=== PATIENT | female | born 1965 | race Caucasian/White ===

== ENCOUNTER → 2018-02-26 | Day surgery (SDC) | payer OTHER ==
[~2018-02-26] MED LIST: BIOTIN2500 MCG PO; CITALOPRAM HBR20 MG PO; FENTANYL CITRATE/PF 100MCG/2 ML INJ ONE; FERROUS SULFAT325 M1 PO; FISH OIL 1,2001 EACH PO; MELOXICAM7.5 MG PO; MIDAZOLAM HCL 2 MG/2 ML VIAL ONE; MIRAPEX1 MG PO; NAPROXEN250 MG PO; POTASSIUM CITR10 MEQ PO; PROBIOTIC & AC1 EACH PO; PROPOFOL IV EMULSION 10 MG/ML 50 ML VIAL ONE; URSODIOL300 MG PO; VITAMIN D250000 UNIT PO; Z.0.GLIMEPIRIDE1 MG PO; Z.0.METOPROLOL TART5 PO; Z.0.PANTOPRAZOLE SO4 PO; Z.0.SERTRALINE HCL50 PO; ZYRTEC10 M3 PO; [UNRECOGNIZED DRUG - OTHER] PO
[2018-02-26 09:54] VITALS: BP 130/73
--- NOTE | 2018-02-26 10:36 | Operative Report ---
DATE OF PROCEDURE: February 26, 2018 PROCEDURES 1. Esophagogastroduodenoscopy. 2. Colonoscopy. The patient with a history of anemia, history of adenomatous colon polyps here for an EGD and colonoscopy. REFERRING PHYSICIAN: Dr. Vazquez PROCEDURE: After informed written consent and premedication with monitored anesthesia care, the standard video Olympus gastroscope was introduced into the mouth, esophagus, stomach, and into the jejunum. The patient had a gastric bypass. The gastrojejunal anastomosis appeared to be normal. She did have a significant gastric remnant, which showed some gastritis and biopsies were done. The esophagus appeared to be normal. PROCEDURE: Colonoscopy. The standard adult video Olympus colonoscope was introduced into the rectum and all the way into the cecum. The cecum, ascending colon, transverse, descending, sigmoid, and rectum all appeared to be normal. IMPRESSION 1. Normal colonoscopy. 2. Gastritis. 3. Gastric bypass. RECOMMENDATIONS: Check results of the biopsies. Repeat colonoscopy in 3 years. Iron supplementation per PCP. Job#: [id number]
== END | disposition home or self-care (01) ==
LOC: OR 06:28
PROVIDERS: ATTEND Internal Medicine Gastroenterology
DX: Z12.11 Encounter for screening for malignant neoplasm of colon (principal); Z86.010 Personal history of colon polyps; K29.70 Gastritis, unspecified, without bleeding; Z98.84 Bariatric surgery status; D50.9 Iron deficiency anemia, unspecified; Z71.3 Dietary counseling and surveillance; E66.01 Morbid (severe) obesity due to excess calories; G47.33 Obstructive sleep apnea (adult) (pediatric); E11.9 Type 2 diabetes mellitus without complications; I10 Essential (primary) hypertension; K21.9 Gastro-esophageal reflux disease without esophagitis; N20.0 Calculus of kidney; F32.9 Major depressive disorder, single episode, unspecified; Z88.1 Allergy status to other antibiotic agents; Z91.048 Other nonmedicinal substance allergy status; Z01.810 Encounter for preprocedural cardiovascular examination; Z68.42 Body mass index [BMI] 45.0-49.9, adult; Z79.84 Long term (current) use of oral hypoglycemic drugs; Z85.828 Personal history of other malignant neoplasm of skin; Z87.440 Personal history of urinary (tract) infections; Z83.79 Family history of other diseases of the digestive system
CPT/HCPCS: 36415; 43239; 45378; 82948; 93005; J2250

== ENCOUNTER → 2021-11-29 | Day surgery (SDC) | payer OTHER ==
[~2021-11-29] MED LIST changes: +ABILIFY2 MG PO; +CELEXA20 MG PO; +COLON HEALTH PO; +DESYREL PO; -FENTANYL CITRATE/PF 100MCG/2 ML INJ ONE; +IRON PO; +LIDOCAINE HCL 2% LOCAL INJ 5 ML SDV VIAL INJ ONE; +METFORMIN PO; -MIDAZOLAM HCL 2 MG/2 ML VIAL ONE; +PROPOFOL IV EMULSION 10 MG/ML 20 ML VIAL ONE; -PROPOFOL IV EMULSION 10 MG/ML 50 ML VIAL ONE; +TERBINAFINE HC250 MG PO; +VIT B12 PO; +XIFAXAN550 MG PO
[2021-11-29 08:32] VITALS: BP 119/76
== END | disposition home or self-care (01) ==
LOC: OR 06:58
PROVIDERS: ATTEND Internal Medicine Gastroenterology
DX: R15.9 Full incontinence of feces (principal); K63.5 Polyp of colon; K58.9 Irritable bowel syndrome, unspecified; K59.00 Constipation, unspecified; Z71.3 Dietary counseling and surveillance; G47.33 Obstructive sleep apnea (adult) (pediatric); K76.0 Fatty (change of) liver, not elsewhere classified; Z78.9 Other specified health status; E11.9 Type 2 diabetes mellitus without complications; E66.01 Morbid (severe) obesity due to excess calories; M19.90 Unspecified osteoarthritis, unspecified site; F41.9 Anxiety disorder, unspecified; Z88.1 Allergy status to other antibiotic agents; Z88.2 Allergy status to sulfonamides; Z91.048 Other nonmedicinal substance allergy status; Z01.810 Encounter for preprocedural cardiovascular examination; Z01.812 Encounter for preprocedural laboratory examination; Z20.822 Contact with and (suspected) exposure to COVID-19; Z79.84 Long term (current) use of oral hypoglycemic drugs; Z79.899 Other long term (current) drug therapy; Z68.42 Body mass index [BMI] 45.0-49.9, adult
CPT/HCPCS: 36415; 45380; 82948; 88305; 93005; J2001; J2704; U0002; 45378; 88304